=== PATIENT | female | born 1985 | race Caucasian/White ===

== ENCOUNTER 2017-08-05 15:14 | Inpatient (IN) | payer BC ==
[~2017-08-05] VITALS: Ht 152.4 cm; Wt 60.5 kg
[2017-10-22] VITALS (42 sets, daily range): BP systolic 87–122; BP diastolic 50–72; PULSE 65–103; TEMP 97.6–99
[2017-10-22] MEDS ORDERED: PRENATAL (07:34)
[2017-10-22 07:58] LABS: BASO % 0.3 % (0.0-2.0); EOS # 0.2 (0.0-0.7); GRAN # 5.3 (1.4-6.5); GRAN % 67.1 % (42.2-75.2); HEMOGLOBIN 13.3 g/dl (12.5-16.0); LYMPH # 1.7 (1.2-3.4); LYMPH % 21.6 % (20.0-51.0); MEAN CELL VOLUME 93 fl (80.0-100.0); MEAN CORPUSCULAR HEMOGLOBIN 32 pg (27.0-31.0); MEAN CORPUSCULAR HGB CONC 35 g/dl (33.0-37.0); MEAN PLATELET VOLUME 10.6 fl (7.4-10.4); MONO # 0.6 (0.1-0.6); MONO % 7.7 % (1.7-9.3); PLATELET COUNT 191 K/mm3 (130-400); REDCELL DISTRIBUTION WIDTH-CV 14.3 % (11.5-14.5)
[2017-10-23 00:15] VITALS: BP 115/74; PULSE 82; TEMP 98.7
[2017-10-23 04:10] VITALS: BP 102/58; PULSE 90; TEMP 97.8
[2017-10-23 07:30] VITALS: BP 104/60; PULSE 83; TEMP 97.8
[2017-10-23 07:52] LABS: HEMATOCRIT 38.4 % (37.0-47.0)
[2017-10-23] MEDS ORDERED: IBU600 MG PO (08:25)
[2017-10-23 15:55] VITALS: BP 104/66; PULSE 96; TEMP 97.8
== END 2017-10-23 17:25 | disposition home or self-care (01) | DRG 775 ==
LOC: LDR 10-22 07:01 → OB 10-22 08:58 → EDSTATUS 10-28 08:57 → LDRO 10-28 15:14
PROVIDERS: Obstetrics & Gynecology
PROC: 10D07Z6 Extraction of Products of Conception, Vacuum, Via Natural or Artificial Opening (ICD-10-PCS; principal; 2017-10-22)
PROC: 0KQM0ZZ Repair Perineum Muscle, Open Approach (ICD-10-PCS; 2017-10-22)
PROC: 10907ZC Drainage of Amniotic Fluid, Therapeutic from Products of Conception, Via Natural or Artificial Opening (ICD-10-PCS; 2017-10-22)
PROC: 3E033VJ Introduction of Other Hormone into Peripheral Vein, Percutaneous Approach (ICD-10-PCS; 2017-10-22)
DX: O76 Abnormality in fetal heart rate and rhythm complicating labor and delivery (principal); Z3A.39 39 weeks gestation of pregnancy; Z37.0 Single live birth; O70.1 Second degree perineal laceration during delivery
CPT/HCPCS: J2590; J2795; J7120